=== PATIENT | female | born 1975 | race Caucasian/White ===

== ENCOUNTER 2019-04-24 10:35 | Inpatient (IN) ==
[2019-04-24] MEDS ORDERED: NARCAN IV ONE (10:52)
[2019-04-24] MEDS ORDERED: NS 1,000 ML IV ONE ×2 (10:52→13:00)
--- NOTE | 2019-04-24 10:57 | EKG Report ---
Test Performed on : 04/24/2019 10:49:14 AM Test Reason : decreased mental status Blood Pressure : / mmHG Vent. Rate : 093 BPM Atrial Rate : 093 BPM P-R Int : 140 ms QRS Dur : 078 ms QT Int : 392 ms P-R-T Axes : 061 028 055 degrees QTc Int : 487 ms Normal sinus rhythm. Possible Left atrial enlargement Septal infarct (cited on or before 22-APR-2019) Abnormal ECG When compared with ECG of 22-APR-2019 17:57, (Unconfirmed) No significant change was found Unconfirmed Result
[2019-04-24 11:05] LABS: BASO# 0.05 X1000 (0.0-0.2); BASO% 0.7 % (0.0-0.8); EOS# 0.25 X1000 (0.0-0.7); EOS% 3.3 % (0.0-10.0); HEMATOCRIT 38.4 % (37.0-47.0); HEMOGLOBIN 12.7 g/dL (12.0-16.0); LYMPH% 15.7 % (20.5-51.1); MCH 29.8 PG (27-31); MCHC 33.1 g/dL (33-37); MCV 90.1 FL (81-99); MONO# 0.49 X1000 (0.11-0.59); MONO% 6.4 % (1.7-9.3); MPV 10.8 FL (7.4-10.4); NEUT# 5.63 X1000 (1.4-6.5); NEUT% 73.9 % (42.2-75.2); PLT 182 X1000 (130-400); RBC 4.26 XMIL (4.2-5.4); RDW 13.4 % (11.5-14.5); WBC 7.62 X1000 (4.8-10.8)
[2019-04-24 11:24] LABS: ALLEN TEST YES; BE -3.7 mmoll (-3.0-3.0); BLOOD TYPE ARTERIAL; O2(CT) 16.1 mL/dL (15.0-23.0); O2HB 95.7 % (95.0-99.0); PCO2(98.6) 42 mmHg (35-45); PO2(98.6) 88 mmHg (60-100); SAMPLE BLOOD; SAO2 95.7 % (95.0-100.0); THB 11.9 g/dL (11.5-17.4); pH(98.6) 7.33 (7.35-7.45)
[2019-04-24 11:24] LABS: AGAP 7; BUN 7 mg/dL (8-22); CALCIUM 9.4 mg/dL (8.8-10.2); CHLORIDE 109 mmol/L (98-107); COSMO 275; CREATININE 0.7 mg/dL (0.5-0.9); ESTIMATED GFR > 60; GLUCOSE 86 mg/dL (70-104); SODIUM 139 mmol/L (136-145); TCO2 23 mmol/L (25-35)
[2019-04-24 11:25] LABS: ALB/GLOB RATIO 1.3; ALBUMIN 3.7 g/dL (3.5-5.0); ALKALINE PHOSPHATASE 94 U/L (32-104); GOT 15 U/L (10-30); GPT 5 U/L (10-36); TOTAL BILIRUBIN 0.26 mg/dL (0.20-1.00); TOTAL PROTEIN 6.6 g/dL (6.3-8.3)
[2019-04-24] MEDS ORDERED: AMIDATE ONE (11:28)
[2019-04-24] MEDS ORDERED: NORCURON ONE (11:30)
[2019-04-24] MEDS ORDERED: AMIDATE IV ONE (11:30)
[2019-04-24] MEDS ORDERED: NORCURON IV ONE (11:30)
--- NOTE | 2019-04-24 11:30 | Diag Imaging Result Doc PS360 ---
EXAM: CHEST-PORTABLE HISTORY: decreased mental status TECHNIQUE: Chest single view COMPARISON: 04/22/2019 FINDINGS: The lungs are well expanded. The heart is not enlarged. The vessels are not distended. There are increased interstitial markings in the right upper lung. No effusion identified. Prior surgery to the right clavicle IMPRESSION: Persistent infiltrates in the right upper lobe. Electronically signed by Kiran Hebert 04/24/2019 11:28 AM
--- NOTE | 2019-04-24 11:47 | PROVIDER DOCUMENTATION ---
This chart was entered by Yuliana Walton Scribe, acting as scribe for Anahi Block MD. [id number] Abuse/Overdose - General Stated Complaint: OVERDOSE Time Seen by Provider: 04/24/19 10:35 Source: patient, family (sister baudilio) Unable to obtain history due to:: altered Allergies/Adverse Reactions: Allergies Allergy/AdvReac Type Severity Reaction Status Date / Time morphine Allergy Severe SHORTNESS Verified 10/29/18 14:40 OF BREATH levetiracetam [From Keppra] Allergy Unknown SWELLING Verified 10/29/18 14:40 Home Medications: Home Medication List Medication Instructions Recorded Confirmed Last Taken Type Levothyroxine [Synthroid] 137 microgm PO DAILY@0700 #30 11/08/13 06/04/17 04/17/15 Rx tablet Albuterol Sulfate [Proventil Hfa] 6.7 mg INH DIRECTED PRN PRN 04/19/15 04/19/15 Unknown History Benztropine [Cogentin] 1 mg PO BID 04/19/15 06/04/17 04/17/15 History Fluticasone/Salmet 250/50 INH 1 puff INH DAILY 04/19/15 06/04/17 04/17/15 History [Advair 250/50 Diskus] Folic Acid 1 mg PO DAILY 04/19/15 06/04/17 04/17/15 History Haloperidol 5 mg PO BID 04/19/15 06/04/17 04/17/15 History Hydrocodone Bit/Acetaminophen 325 mg PO TID 04/19/15 06/04/17 04/17/15 History [Hydrocodon-Acetaminophn 10-325] Poston Carbonate [Poston 300 mg PO BID 04/19/15 06/04/17 04/17/15 History Carbonate ER] Montelukast [Singulair] 10 mg PO DAILY 04/19/15 06/04/17 04/17/15 History Clonazepam 1 mg PO TID 06/04/17 06/04/17 Unknown History Dextroamphetamine/Amphetamine 30 mg PO BID 06/04/17 06/04/17 Unknown History [Dextroamp-Amphetamin 30 mg Tab] Azithromycin [Zithromax] 250 mg PO DAILY #4 tab 04/23/19 Unknown Rx - History of Present Illness-Drug/Alcohol Nature of Presenting Problem: 43 yowf presents to the ed via pov by her sister in law for overdose. pt has hx of drug abuse and on exam has track reynolds in RUE. pt has on a bra for her briefs, pt has mumbling speech and is lethargic. pt pupils are sluggish. pt has a bottle of Heth 10 qty 120 filled 04/16/[address] moreno and the bottle is empty. pt has GCS 11 This episode of drinking or use began:: unsure Severity: reports: moderate Psychiatric Complaints: reports: altered mental status, suicidal ideation Associated Symptoms: denies: back/neck pain, chest pain, cough, nausea, shortness of breath, vomiting Any injuries associated with this episode of intoxication?: No Similar Symptoms Previously?: Yes (hx of drug abuse) Recently seen or treated by another doctor?: No - Substance Abuse Substance Use: reports: opiates - Overdose Intentional drug overdose?: Yes (per sister baudilio has hx of same) List substance(s) ingested.: unknown at this time sister in law sts "she just took alot" How did the ingestion/other suicidal act come to attention?: sister in law found her Suicide Risk Assessment: age >65, prior attempt, organized plan (over dose), no spouse, schizophrenia Clinician's estimation of suicide risk?: uncertain risk Review of Systems - Adult - REVIEW OF SYSTEMS - ADULT ROS:: limited per condition Constitutional: reports: no symptoms reported Eyes: reports: no symptoms reported Ears, Nose, Mouth & Throat: reports: no symptoms reported Cardiovascular: denies: chest pain, edema Respiratory: denies: shortness of breath, wheezing Gastrointestinal: denies: nausea, vomiting Genitourinary: reports: no symptoms reported Musculoskeletal: reports: no symptoms reported Integumentary: reports: no symptoms reported Neurological: denies: dizziness/vertigo, headache/migraines Psychiatric: reports: see HPI, alcohol/drug dependence, emotional problems, suicidal thoughts Endocrine: reports: no symptoms reported Hematologic/Lymphatic: reports: no symptoms reported Allergic/Immunologic: reports: no symptoms reported All Other Systems: Reviewed and Negative Past History - Adult - PAST MEDICAL HISTORY-ADULT Review of Records: reports: Old Records Reviewed, Nursing Assessment Review, Medications Reviewed Major Childhood Illnesses: reports: denies history Cardiovascular: reports: HTN Respiratory: reports: asthma Gastrointestinal: reports: denies history Obstetrical/Gynecological: reports: other (hx of breast CA) Genitourinary: reports: denies history Musculoskeletal: reports: denies history Neurological: reports: meningitis, Seizures/Epilepsy Psychiatric: reports: bipolar, psychiatric problems, suicide attempt, schizophrenia Endocrine/Immune: reports: thyroid disorder Other Conditions: reports: other cancer (breast) - PRIOR SURGERIES/PROCEDURES Surgical/Procedure History: reports: appendectomy, cholecystectomy - IMMUNIZATION STATUS Childhood Immunizations: See Nurse Assessment Flu Vaccine: See Nurse Assessment - FAMILY HISTORY Family History: reviewed, not pertinent - SOCIAL HISTORY Smoking: quit less than 1 year Substance Use: amphetamines, opiates Living Situation: family Physical Exam-General - PHYSICAL EXAM-ADULT Exam Limited by: pt has GCS 11 will respond to pain and mumbles speech Initial Vital Signs Reviewed: Yes - CONSTITUTIONAL General Appearance: thin, lethargic, slow to respond - EYES Eyes: other (pupils are equal and sluggish) - HEAD, EARS, NOSE, MOUTH & THROAT HENMT: dental decay. negative: moist mucous membranes (dry) - NECK Neck: full range of motion - RESPIRATORY Respiratory: chest non-tender - CARDIOVASCULAR Cardiovascular: tachycardia (104). negative: JVD - GASTROINTESTINAL (ABDOMEN) Abdominal Exam: normal bowel sounds, non tender, soft - LYMPHATIC Lymphatic: no adenopathy - MUSCULOSKELETAL Extremity: normal range of motion, normal inspection, normal capillary refill - SKIN Integumentary: pallor - PSYCHIATRIC Psych/Mental Status: other (pt is slow to respond but will to pain and has gag reflex) Progress - PLAN OF CARE/RESULTS Progress/Plan/Lab Results: Vital Signs - 8 hr 04/24/19 11:00 04/24/19 11:02 04/24/19 11:10 Temperature Pulse Rate 89 98 H 92 H Respiratory Rate 12 36 H 22 Blood Pressure 100/64 94/67 O2 Sat by Pulse Oximetry 99 100 100 04/24/19 11:12 04/24/19 11:20 04/24/19 11:22 Temperature Pulse Rate 95 H 94 H 96 H Respiratory Rate 21 21 Blood Pressure 105/73 119/74 O2 Sat by Pulse Oximetry 99 87 L 92 L 04/24/19 11:30 04/24/19 11:32 04/24/19 11:36 Temperature Pulse Rate 90 91 H 98 H Respiratory Rate 13 14 22 Blood Pressure 110/94 110/73 O2 Sat by Pulse Oximetry 100 100 100 08/16/19 11:38 04/24/19 11:40 04/24/19 11:42 Temperature Pulse Rate 98 H 95 H 96 H Respiratory Rate 15 16 17 Blood Pressure 115/85 116/81 121/82 O2 Sat by Pulse Oximetry 100 100 100 04/24/19 11:44 04/24/19 11:46 04/24/19 11:50 Temperature Pulse Rate 91 H 89 99 H Respiratory Rate 12 10 L 27 H Blood Pressure 110/83 105/80 O2 Sat by Pulse Oximetry 100 100 100 04/24/19 11:52 04/24/19 12:02 04/24/19 12:12 Temperature 98.0 F Pulse Rate 109 H 113 H 109 H Respiratory Rate 14 14 17 Blood Pressure 124/83 114/79 102/70 O2 Sat by Pulse Oximetry 100 100 100 04/24/19 12:22 04/24/19 12:32 04/24/19 12:40 Temperature Pulse Rate 113 H 111 H 105 H Respiratory Rate 20 22 13 Blood Pressure 112/76 109/69 O2 Sat by Pulse Oximetry 99 100 100 04/24/19 12:42 04/24/19 12:50 04/24/19 12:53 Temperature Pulse Rate 103 H 105 H 102 H Respiratory Rate 16 15 13 Blood Pressure 101/67 O2 Sat by Pulse Oximetry 100 100 04/24/19 12:54 04/24/19 13:00 04/24/19 13:02 Temperature Pulse Rate 99 H 98 H 103 H Respiratory Rate 15 18 19 Blood Pressure 98/66 122/74 O2 Sat by Pulse Oximetry 100 100 100 04/24/19 13:10 04/24/19 13:12 04/24/19 13:20 Temperature Pulse Rate 91 H 91 H 98 H Respiratory Rate 13 16 16 Blood Pressure 113/80 O2 Sat by Pulse Oximetry 100 100 100 04/24/19 13:22 04/24/19 13:30 04/24/19 13:32 Temperature Pulse Rate 98 H 96 H 93 H Respiratory Rate 24 8 L 5 L Blood Pressure 106/74 106/70 O2 Sat by Pulse Oximetry 100 100 100 04/24/19 13:40 04/24/19 13:50 04/24/19 13:52 Temperature Pulse Rate 93 H 92 H 92 H Respiratory Rate 14 10 L 10 L Blood Pressure 110/78 O2 Sat by Pulse Oximetry 100 100 100 08/16/19 14:00 04/24/19 14:02 04/24/19 14:10 Temperature Pulse Rate 92 H 95 H 93 H Respiratory Rate 13 14 16 Blood Pressure 119/75 O2 Sat by Pulse Oximetry 100 100 100 04/24/19 14:12 04/24/19 14:20 04/24/19 14:22 Temperature Pulse Rate 85 88 89 Respiratory Rate 13 14 13 Blood Pressure 117/87 119/83 O2 Sat by Pulse Oximetry 100 100 100 04/24/19 14:30 04/24/19 14:32 04/24/19 14:40 Temperature Pulse Rate 87 90 87 Respiratory Rate 16 11 L 13 Blood Pressure 125/79 O2 Sat by Pulse Oximetry 100 100 100 04/24/19 14:43 Temperature Pulse Rate 97 H Respiratory Rate 19 Blood Pressure 128/104 O2 Sat by Pulse Oximetry 100 Bedside Urine ED: Urine Bedside Start: 04/24/19 12:08 Freq: ORDERED Status: Complete Protocol: Activity Type Activity Date Activity User E-Sign Co-Sign Detail Recorded Client Recorded Date Recorded By Document 04/24/19 12:09 [id number] 04/24/19 12:09 [id number] 04/24/19 12:09 Point of Care [Bedside Point of Care] -Lot # [id number] - Results Negative -Control Line Visible? Yes Laboratory Results - last 24 hr 04/24/19 04/24/19 04/24/19 10:46 10:46 10:46 WBC 7.62 RBC 4.26 Hgb 12.7 Hct 38.4 MCV 90.1 MCH 29.8 MCHC 33.1 RDW Std Deviation 13.4 Plt Count 182 MPV 10.8 H Immature Gran % (Auto) 0.0 Neut % (Auto) 73.9 Lymph % (Auto) 15.7 L [place] % (Auto) 6.4 Eos % (Auto) 3.3 Baso % (Auto) 0.7 Immature Gran # (Auto) 0.00 Neut # (Auto) 5.63 Lymph # (Auto) 1.20 [place] # (Auto) 0.49 Eos # (Auto) 0.25 Baso # (Auto) 0.05 PT INR PTT (Actin FS) Specimen Type Sample Site pH pCO2 pO2 HCO3 Base Excess Oxyhemoglobin ABG O2 Sat (Calculated) ABG O2 Saturation ABG Carboxyhemoglobin ABG Methemoglobin Sarabjit Test A-a O2 Difference Total Hemoglobin Lactate Liter Flow Blood Gas Modality Spontaneous Rate FiO2 % Tidal Volume PEEP Sodium 139 Potassium 4.0 Chloride 109 H Carbon Dioxide 23 L Anion Gap 7 BUN 7 L Creatinine 0.7 Estimated GFR/1.73 m2 > 60 BUN/Creatinine Ratio 10 Glucose 86 Calculated Osmolality 275 Calcium 9.4 Phosphorus Magnesium Total Bilirubin 0.26 AST 15 ALT 5 L Alkaline Phosphatase 94 Creatine Kinase Troponin T Total Protein 6.6 Albumin 3.7 Globulin 2.9 Albumin/Globulin Ratio 1.3 Plasma Lactate Urine Source Urine Color Urine Turbidity Urine pH Ur Specific [place] Urine Protein Ur Glucose (Stick) Ur Ketones (Stick) Urine Blood Urine Nitrite Urine Bilirubin Urobilinogen Dipstick Urine Leukocytes Urine WBC (Auto) Urine RBC (Auto) U Epithel Cells (Auto) Urine Bacteria (Auto) Salicylates < 3.00 L Urine Opiates Screen Ur Oxycodone Screen Ur Methadone, Qual Acetaminophen 5.8 L Ur Barbiturates Screen Ur Phencyclidine Scrn Ur Amphetamines Screen U Benzodiazepines Scrn Urine Cocaine Screen U Cannabinoids Screen Plasma/Serum Ethyl Alc 04/24/19 04/24/19 04/24/19 10:46 10:46 11:19 WBC RBC Hgb Hct MCV MCH MCHC RDW Std Deviation Plt Count MPV Immature Gran % (Auto) Neut % (Auto) Lymph % (Auto) [place] % (Auto) Eos % (Auto) Baso % (Auto) Immature Gran # (Auto) Neut # (Auto) Lymph # (Auto) [place] # (Auto) Eos # (Auto) Baso # (Auto) PT 12.5 INR 0.93 PTT (Actin FS) 32.3 Specimen Type ARTERIAL Sample Site L RADIAL pH 7.33 L pCO2 42 pO2 88 HCO3 22.0 Base Excess -3.7 L Oxyhemoglobin 95.7 ABG O2 Sat (Calculated) 16.1 ABG O2 Saturation 95.7 ABG Carboxyhemoglobin 0.00 L ABG Methemoglobin 0.0 Sarabjit Test YES A-a O2 Difference 9.0 Total Hemoglobin 11.9 Lactate 0.40 L Liter Flow Blood Gas Modality Spontaneous Rate FiO2 % 21.0 Tidal Volume PEEP Sodium Potassium Chloride Carbon Dioxide Anion Gap BUN Creatinine Estimated GFR/1.73 m2 BUN/Creatinine Ratio Glucose Calculated Osmolality Calcium Phosphorus Magnesium Total Bilirubin AST ALT Alkaline Phosphatase Creatine Kinase Troponin T Total Protein Albumin Globulin Albumin/Globulin Ratio Plasma Lactate Urine Source Urine Color Urine Turbidity Urine pH Ur Specific [place] Urine Protein Ur Glucose (Stick) Ur Ketones (Stick) Urine Blood Urine Nitrite Urine Bilirubin Urobilinogen Dipstick Urine Leukocytes Urine WBC (Auto) Urine RBC (Auto) U Epithel Cells (Auto) Urine Bacteria (Auto) Salicylates Urine Opiates Screen Ur Oxycodone Screen Ur Methadone, Qual Acetaminophen Ur Barbiturates Screen Ur Phencyclidine Scrn Ur Amphetamines Screen U Benzodiazepines Scrn Urine Cocaine Screen U Cannabinoids Screen Plasma/Serum Ethyl Alc 04/24/19 04/24/19 04/24/19 12:04 12:04 12:43 WBC RBC Hgb Hct MCV MCH MCHC RDW Std Deviation Plt Count MPV Immature Gran % (Auto) Neut % (Auto) Lymph % (Auto) [place] % (Auto) Eos % (Auto) Baso % (Auto) Immature Gran # (Auto) Neut # (Auto) Lymph # (Auto) [place] # (Auto) Eos # (Auto) Baso # (Auto) PT INR PTT (Actin FS) Specimen Type ARTERIAL Sample Site L RADIAL pH 7.35 pCO2 36 pO2 201 H HCO3 20.9 Base Excess -5.1 L Oxyhemoglobin 96.7 ABG O2 Sat (Calculated) 16.1 ABG O2 Saturation 97.0 ABG Carboxyhemoglobin 0.00 L ABG Methemoglobin 0.3 Sarabjit Test YES A-a O2 Difference 39.0 Total Hemoglobin 11.5 Lactate 0.70 Liter Flow Blood Gas Modality VENTILATOR Spontaneous Rate 12 FiO2 % 40.0 Tidal Volume 450 PEEP 5.0 Sodium Potassium Chloride Carbon Dioxide Anion Gap BUN Creatinine Estimated GFR/1.73 m2 BUN/Creatinine Ratio Glucose Calculated Osmolality Calcium Phosphorus Magnesium Total Bilirubin AST ALT Alkaline Phosphatase Creatine Kinase Troponin T Total Protein Albumin Globulin Albumin/Globulin Ratio Plasma Lactate Urine Source CATH Urine Color YELLOW Urine Turbidity HAZY Urine pH 6.0 Ur Specific [place] 1.010 Urine Protein NEGATIVE Ur Glucose (Stick) NEGATIVE Ur Ketones (Stick) TRACE A Urine Blood TRACE A Urine Nitrite NEGATIVE Urine Bilirubin NEGATIVE Urobilinogen Dipstick NORMAL Urine Leukocytes LARGE A Urine WBC (Auto) TNTC A Urine RBC (Auto) <10 U Epithel Cells (Auto) <10 Urine Bacteria (Auto) 4+ Salicylates Urine Opiates Screen PRESUMPTIVE POSITIVE A Ur Oxycodone Screen NONE DETECTED Ur Methadone, Qual NONE DETECTED Acetaminophen Ur Barbiturates Screen NONE DETECTED Ur Phencyclidine Scrn NONE DETECTED Ur Amphetamines Screen PRESUMPTIVE POSITIVE A U Benzodiazepines Scrn PRESUMPTIVE POSITIVE A Urine Cocaine Screen NONE DETECTED U Cannabinoids Screen NONE DETECTED Plasma/Serum Ethyl Alc 04/24/19 04/24/19 04/24/19 13:43 13:43 13:43 WBC RBC Hgb Hct MCV MCH MCHC RDW Std Deviation Plt Count MPV Immature Gran % (Auto) Neut % (Auto) Lymph % (Auto) [place] % (Auto) Eos % (Auto) Baso % (Auto) Immature Gran # (Auto) Neut # (Auto) Lymph # (Auto) [place] # (Auto) Eos # (Auto) Baso # (Auto) PT INR PTT (Actin FS) Specimen Type Sample Site pH pCO2 pO2 HCO3 Base Excess Oxyhemoglobin ABG O2 Sat (Calculated) ABG O2 Saturation ABG Carboxyhemoglobin ABG Methemoglobin Sarabjit Test A-a O2 Difference Total Hemoglobin Lactate Liter Flow Blood Gas Modality Spontaneous Rate FiO2 % Tidal Volume PEEP Sodium Potassium Chloride Carbon Dioxide Anion Gap BUN Creatinine Estimated GFR/1.73 m2 BUN/Creatinine Ratio Glucose Calculated Osmolality Calcium Phosphorus 2.9 Magnesium 1.9 Total Bilirubin AST ALT Alkaline Phosphatase Creatine Kinase 55 Troponin T < 0.010 Total Protein Albumin Globulin Albumin/Globulin Ratio Plasma Lactate Urine Source Urine Color Urine Turbidity Urine pH Ur Specific [place] Urine Protein Ur Glucose (Stick) Ur Ketones (Stick) Urine Blood Urine Nitrite Urine Bilirubin Urobilinogen Dipstick Urine Leukocytes Urine WBC (Auto) Urine RBC (Auto) U Epithel Cells (Auto) Urine Bacteria (Auto) Salicylates Urine Opiates Screen Ur Oxycodone Screen Ur Methadone, Qual Acetaminophen Ur Barbiturates Screen Ur Phencyclidine Scrn Ur Amphetamines Screen U Benzodiazepines Scrn Urine Cocaine Screen U Cannabinoids Screen Plasma/Serum Ethyl Alc 04/24/19 04/24/19 13:43 13:54 WBC RBC Hgb Hct MCV MCH MCHC RDW Std Deviation Plt Count MPV Immature Gran % (Auto) Neut % (Auto) Lymph % (Auto) [place] % (Auto) Eos % (Auto) Baso % (Auto) Immature Gran # (Auto) Neut # (Auto) Lymph # (Auto) [place] # (Auto) Eos # (Auto) Baso # (Auto) PT INR PTT (Actin FS) Specimen Type ARTERIAL Sample Site L RADIAL pH 7.25 L pCO2 47 H pO2 154 H HCO3 19.8 L Base Excess -6.6 L Oxyhemoglobin 96.5 ABG O2 Sat (Calculated) 16.2 ABG O2 Saturation 96.5 ABG Carboxyhemoglobin 0.00 L ABG Methemoglobin 0.0 Sarabjit Test YES A-a O2 Difference 15.0 Total Hemoglobin 11.7 Lactate 0.30 L Liter Flow 3.0 Blood Gas Modality CANNULA Spontaneous Rate FiO2 % 32.0 Tidal Volume PEEP Sodium Potassium Chloride Carbon Dioxide Anion Gap BUN Creatinine Estimated GFR/1.73 m2 BUN/Creatinine Ratio Glucose Calculated Osmolality Calcium Phosphorus Magnesium Total Bilirubin AST ALT Alkaline Phosphatase Creatine Kinase Troponin T Total Protein Albumin Globulin Albumin/Globulin Ratio Plasma Lactate 0.5 Urine Source Urine Color Urine Turbidity Urine pH Ur Specific [place] Urine Protein Ur Glucose (Stick) Ur Ketones (Stick) Urine Blood Urine Nitrite Urine Bilirubin Urobilinogen Dipstick Urine Leukocytes Urine WBC (Auto) Urine RBC (Auto) U Epithel Cells (Auto) Urine Bacteria (Auto) Salicylates Urine Opiates Screen Ur Oxycodone Screen Ur Methadone, Qual Acetaminophen Ur Barbiturates Screen Ur Phencyclidine Scrn Ur Amphetamines Screen U Benzodiazepines Scrn Urine Cocaine Screen U Cannabinoids Screen Plasma/Serum Ethyl Alc Orders Category Date Time Status Admit [facility] Routine [id number] 04/24/19 14:01 Active Activity - Up with Assistance ORDERED Care 04/24/19 14:56 Active Apply Mechanical Device [QM] ORDERED Care 04/24/19 14:56 Active ED: Urine Bedside ORDERED Care 04/24/19 12:08 Completed [place] Cath Insertion ORDERED Care 04/24/19 12:43 Completed Intake and Output-Strict ORDERED Care 04/24/19 14:56 Active Nursing- Assist w/ IS as order ORDERED Care 04/24/19 14:56 Active Restraint Initiate NonViolent ONCE Care 04/24/19 12:32 Active Saline Loc NOW Care 04/24/19 10:52 Active Update & Confirm Home Medicati ROUTINE Care 04/24/19 14:01 Active Vital Signs Order Q 4-HR ASSESS Care 04/24/19 14:56 Active Z-Document. for Tele Applied ORDERED Care 04/24/19 14:56 Active Social Service Consult Routine Cons 04/24/19 14:56 Active CHEST-PORTABLE [RAD] Stat Exams 04/24/19 10:[address] HEAD W/O CONTRAST [CT] Stat Exams 04/24/19 11:46 Ordered ABG [RESP] Routine Lab 04/24/19 11:19 Completed ABG [RESP] Routine Lab 04/24/19 12:43 Completed ABG [RESP] Routine Lab 04/24/19 13:54 Completed ACETAMINOPHEN [TDM] Stat Lab 04/24/19 10:46 Completed ALCOHOL BLOOD Stat Lab 04/24/19 10:46 Completed CBC WITH DIFF [HEME] Routine Lab 04/25/19 06:00 Uncollected CBC WITH DIFF [HEME] Stat Lab 04/24/19 10:46 Completed CK TOTAL [CHEM] Stat Lab 04/24/19 13:43 Completed COMPREHENSIVE METABOLIC PANEL [CHEM] Routine Lab 04/25/19 06:00 Uncollected COMPREHENSIVE METABOLIC PANEL [CHEM] Stat Lab 04/24/19 10:46 Completed FREE T4 Routine Lab 04/25/19 06:00 Ordered LACTATE, PLASMA [CHEM] Stat Lab 04/24/19 13:43 Completed MAGNESIUM [CHEM] Routine Lab 04/25/19 06:00 Uncollected MAGNESIUM [CHEM] Stat Lab 04/24/19 13:43 Completed PHOSPHORUS [CHEM] Stat Lab 04/24/19 13:43 Completed PROTIME WITH INR [COAG] Routine Lab 04/25/19 06:00 Uncollected PROTIME WITH INR [COAG] Stat Lab 04/24/19 10:46 Completed PTT [COAG] Routine Lab 04/25/19 06:00 Uncollected PTT [COAG] Stat Lab 04/24/19 10:46 Completed SALICYLATES [TDM] Stat Lab 04/24/19 10:46 Completed TROPONIN T Stat Lab 04/24/19 13:43 Completed TSH Routine Lab 04/25/19 06:00 Uncollected URINALYSIS W/POSS RFLX CULT [URINALYSIS] Stat Lab 04/24/19 12:04 Completed URINE DRUG SCREEN Stat Lab 04/24/19 12:04 Completed 0.9% Sodium Chloride Inj [Ns] 1,000 ml Med 04/24/19 12:58 Discontinued .ROUTE As directed 0.9% Sodium Chloride Inj [Ns] 1,000 ml Med 04/24/19 10:52 Discontinued IV 999 mls/hr 0.9% Sodium Chloride Inj [Ns] 1,000 ml Med 04/24/19 13:00 Discontinued IV 999 mls/hr Albuterol 2.5MG/Ipratrop 0.5MG [Duoneb (A & A)] Med 04/24/19 14:01 Active 3 ml INH Q2H PRN PRN Etomidate [Amidate] Med 04/24/19 11:28 Discontinued 40 mg .ROUTE .STK-MED ONE Etomidate [Amidate] Med 04/24/19 11:30 Discontinued 5 mg IV NOW ONE Naloxone [Narcan] Med 04/24/19 10:52 Discontinued 2 mg IV NOW ONE Ondansetron [Zofran] Med 04/24/19 14:01 Active 4 mg IV Q4H PRN PRN Piperacillin/Tazobactam [Zosyn] 3.375 gm Med 04/24/19 14:30 Active 0.9% Sodium Chloride Inj [Ns] 50 ml IV Q6H Vecuronium [Norcuron] Med 04/24/19 11:30 Discontinued 10 mg .ROUTE .STK-MED ONE Vecuronium [Norcuron] Med 04/24/19 11:30 Discontinued 6 mg IV NOW ONE Aerosol Treatments Routine Oth 04/24/19 14:01 Completed BIPAP Routine Oth 04/24/19 14:24 Active Incentive Spirometer Routine Oth 04/24/19 14:56 Completed Oxygen Device Routine Oth 04/24/19 14:56 Completed Pulse Oximetry Routine Oth 04/24/19 14:56 Completed Telemetry [OM.EQ] Routine Oth 04/24/19 14:56 Active EKG [EKG] Routine Ther 04/25/19 08:00 Ordered EKG [EKG] Stat Ther 04/24/19 10:52 Draft Transfer/Admit Order [TRANSFER] Routine Transfer 04/24/19 13:56 Completed Result Diagrams: 04/24/19 10:46 04/24/19 10:46 - REASSESSMENT Reassessment #1 Time Reassessed: 11:01 (Narcan 2mg given with mild response) Status: improving Reassessment Comment: dr block at bedside Reassessment #2 Time Reassessed: 12:07 (pt is intubated with family at bedside) Status: unchanged Reassessment Comment: dr block at bedside Reassessment #3 Time Reassessed: 12:53 (pt is trying to wake but still does not follow commands ) Status: unchanged Reassessment Comment: dr block at bedside Reassessment #5 Time Reassessed: 13:22 (pt waking more and nurse spoke with poision control and pt will be monitored) Status: improving Reassessment Comment: dr block at bedside - EKG 1 Time of EKG reading by physician:: 10:49 EKG Read and Signed by:: Anahi Block EKG Interpretation (*Must complete 3 of following elements*): Abnormal Rate: 93 Rhythm: nsr [place]: normal QRS: other (possible left atrial enlargement) OK Interval: normal ST Wave: normal Comments: septal infarct, age undetermined - CONSULTS/PCP/HOSPITALIST Notification #1 *Consult/PCP/Hospitalist*: hospitalist Time Discussed: 13:13 (spoke with jo ann) Consult Disposition: Admit Procedures - INTUBATION Time of Intubation: 11:42 Mallampati Class: 2 Intubation Method: orotracheal Equipment: ETT Tube Size (cm): 7.5 Pretreated with 100% Oxygen?: Yes Breath Sounds after Intubation: equal ETT Primary Tube Confirmation: Capnometry CO2 Change, Direct Visualization, Chest Rise and Fall, Tube placement verified on XRAY Intubation Complications: no complications Vent Settings: See Respiratory Therapy Notes Departure - Departure Date of Disposition Decision: 04/24/19 Time of Disposition Decision: 13:14 DIAGNOSIS: Drug use, Opioid use disorder Overdose Qualifiers: Encounter type: initial encounter Injury intent: intentional self-harm Qualified Code(s): T50.902A - Poisoning by unspecified drugs, medicaments and biological substances, intentional self-harm, initial encounter Disposition: ADMITTED INPATIENT 09 Certified Medical Emergency: Emergent Condition: Stable - Critical Care Note This patient required my direct & personal management of CC.: Yes Total Time (mins): 48 Critical Care Statement: This patient required my direct personal management to treat or rule out processes, the absence of which, could potentiallly result in sudden, clinically significant life or limb threatening deterioration. Attestation - Physician/ GARY Attestation Patient care was provided by Advanced Practice Provider:: No The physician spent face to face time with patient:: Yes Advanced Practice Provider documentation review:: Supervising physician onsite and consulted in the evaluation and care of this patient. The physician did have a face to face encounter with the patient. This chart was documented by the indicated scribe, (Yuliana Walton Scribe) and accurately reflects the services I performed and decisions made by , Anahi Block MD, as attested by the provider's signature.
[2019-04-24 12:31] LABS: URINE SOURCE CATH
[2019-04-24 12:39] LABS: BILIRUBIN URINE NEGATIVE (NEGATIVE); BLOOD URINE TRACE (NEGATIVE); COLOR YELLOW; GLUCOSE URINE NEGATIVE (NEGATIVE); KETONE URINE TRACE mg/dL (NEGATIVE); LEUKOCYTES URINE LARGE (NEGATIVE); NITRITE URINE NEGATIVE (NEGATIVE); PROTEIN URINE NEGATIVE (NEGATIVE); TURBIDITY URINE HAZY (CLEAR); UROBILINOGEN URINE NORMAL (NORMAL)
[2019-04-24 12:41] LABS: UR EPITHELIAL CELLS <10 /HPF (<10); URINE BACTERIA 4+ /HPF; URINE RBC <10 /HPF (<10); URINE WBC TNTC /HPF (<10)
[2019-04-24 12:50] LABS: ALLEN TEST YES; BE -5.1 mmoll (-3.0-3.0); BLOOD TYPE ARTERIAL; HCO3-(ACT) 20.9 mmoll (20.0-26.0); METHB 0.3 % (0.0-1.5); O2(CT) 16.1 mL/dL (15.0-23.0); O2HB 96.7 % (95.0-99.0); PCO2(98.6) 36 mmHg (35-45); PO2(98.6) 201 mmHg (60-100); SAMPLE BLOOD; SRATE 12 BPM; THB 11.5 g/dL (11.5-17.4); TVOL 450 mL; pH(98.6) 7.35 (7.35-7.45)
[2019-04-24 12:53] LABS: MODALITY VENTILATOR
[2019-04-24 12:54] LABS: UR AMPHETAMINES QUAL PRESUMPTIVE POSITIVE (NONE DETECT); UR BARBITUATES QUAL NONE DETECTED (NONE DETECT); UR BENZODIAZEPIN QUAL PRESUMPTIVE POSITIVE (NONE DETECT); UR CANNABINOIDS QUAL NONE DETECTED (NONE DETECT); UR COCAINE QUAL NONE DETECTED (NONE DETECT); UR METHADONE QUAL NONE DETECTED (NONE DETECT); UR OPIATES QUAL PRESUMPTIVE POSITIVE (NONE DETECT); UR OXYCODONE QUAL NONE DETECTED (NONE DETECT); UR PCP QUAL NONE DETECTED (NONE DETECT)
[2019-04-24] MEDS ORDERED: NS 1,000 ML ONE (12:58)
[2019-04-24 13:42] LABS: ACETAMINOPHEN 5.8 ug/mL (10-30); SALICYLATES < 3.00 mg/dL (3-10)
[2019-04-24 13:52] LABS: INR 0.93; PROTIME 12.5 Seconds (11.0-16.0)
[2019-04-24 13:53] LABS: PTT 32.3 Seconds (22.3-41.8)
[2019-04-24] MEDS ORDERED: ZOFRAN IV PRN (14:01)
[2019-04-24 14:09] LABS: ALLEN TEST YES; BE -6.6 mmoll (-3.0-3.0); BLOOD TYPE ARTERIAL; HCO3-(ACT) 19.8 mmoll (20.0-26.0); MODALITY CANNULA; O2(CT) 16.2 mL/dL (15.0-23.0); O2HB 96.5 % (95.0-99.0); PCO2(98.6) 47 mmHg (35-45); PO2(98.6) 154 mmHg (60-100); SAMPLE BLOOD; SAO2 96.5 % (95.0-100.0); THB 11.7 g/dL (11.5-17.4); pH(98.6) 7.25 (7.35-7.45)
[2019-04-24 14:11] LABS: PHOSPHORUS 2.9 mg/dL (2.7-4.5)
--- NOTE | 2019-04-24 15:35 | HISTORY AND PHYSICAL ---
PRIMARY CARE PROVIDER: Currently, Venkatesh Lowery in [place]. Prior to this, a lot of her prescriptions come from Dennis Wright Jr., a medical doctor and flight deck officer in [place], [place]. Her neurologist is out of [place], [place] as well and his name is Niecy Obando MD. CHIEF COMPLAINT: Overdosing on prescription medications with altered mentation. HISTORY OF PRESENT ILLNESS: Ms Sherrell Millard is a 43-year-old female that is brought in by her qwjrsp-ne-ccd by personal vehicle due to being unresponsive and overdosing on her medications which is thought to be from Adderall, Xanax, Percocet, and Lamictal. She was intubated due to her declining Patel Coma Scale. I think she initially presented with a scale of 13 and down to 8, and was intubated precautionary in order to maintain a good oral airway. She was also extubated within an hour, but it was due to she was awake following commands, fighting the ventilator, and now that she is extubated she is drowsy again. We will have to watch her very very closely. She did get a dose of Narcan which temporarily worked, but with her history of seizures, we will have to let her wake up on her own. Her qkcixd-jj-uzx is going to stay at the bedside to help keep her stimulated. She will open her eyes, but she is very drowsy. If she declines, she will have to be reinstated. On further questioning the zcewjm-ob-wpx about suicidal risks the bsvhbk-br-era states that when she gets angry she makes threats of suicidal ideations with no clear way of doing it. She has not been eating good. She has not been taking her medications good. Apparently, she gets into them after her goes to bed. They are not locked up. The last time she was admitted to inpatient psychiatric was here at [facility] but it was back in 2013. Once she is medically cleared, she really needs inpatient psychiatric care. PAST MEDICAL HISTORY: 1. Bipolar schizophrenia. 2. 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 3. Hypothyroidism. 4. Seizure disorder. 5. Hypoglycemia. 6. Was apparently in a coma for 6 months, and had to have a section during that time. No clear details on what that was from. 7. Breast cancer. SURGICAL HISTORY: 1. section. 2. Appendectomy. 3. Partial hysterectomy. 4. Right shoulder repair from traumatic injury. 5. Breast resection. SOCIAL HISTORY: Quit smoking a month ago. Currently vapes 3 pack per day smoker for 10+ years along with cigars according to the wdtuwi-tz-nsx. No alcohol for 2 years. Had a tendency to abuse her prescription pills. She currently does not work. Currently from her , but the utvkyc-yj-skh and the have to do 24 hour care. Apparently, she is just not stable enough mentally to be left alone. FAMILY HISTORY: Mother was in the , and apparently from anthrax poison, that is what was reported by the umancl-ti-wsx. The father is currently dying from an unknown cancer, and has had a history of liver transplant. ALLERGIES: Morphine and Keppra. HOME MEDICATIONS: Not verified yet, but reviewing medications that have been recently prescribed what is listed as early as February through April with multiple prescriptions from Dennis Wright physician in [place], [place]. There was 1 prescription for folic acid by Dr. Obando her neurologist in [place], [place]. There is one antibiotic prescription from Venkatesh Lowery, a physician in [place]. Apparently, she had Lamictal, [place] and Klonopin in the backpack that was brought, and what was reported in the ER notes is the bottle of [place] 10s quantity of 120 was filled on 04/[address] Lowery and the bottle was empty. To continue with medications that recently were filled, but have not been reconciled yet by nursing staff is Adderall in February, baclofen in April, benztropine in April, clonazepam in February, folic acid in April, haloperidol in February, [place] 10s in February, lamotrigine in February, Synthroid in February, Synthroid again in April, Singulair in March, omeprazole in March, Bactrim in March, trazodone in April, and zonisamide in March. REVIEW OF SYSTEMS: Unable to obtain. PHYSICAL EXAMINATION: VITAL SIGNS: Temperature 98 degrees, heart rate 109, respiratory rate 17, blood pressure 102/70, and O2 saturation 100%. GENERAL: Ms. Sherrell Millard is a 43-year-old female, very very ill-appearing cachectic and extremely drowsy; will barely open her eyes. HEENT: Face is sunken in. Pupils are equal and reactive. Mucous membranes are dry. NECK: Trachea midline. CARDIOVASCULAR: S1, S2. Tachycardic rate and rhythm. No rubs, gallops, or murmurs. No lower extremity edema. +2 dorsalis and radial pulses. Negative JVD or carotid bruits. PULMONARY: Coarse throughout on 3 L nasal cannula. Inspirations are not very deep. GI: Soft. Concave. Positive bowel sounds times 4. EXTREMITIES: Currently will not follow commands. NEUROLOGIC: Nonverbal. Opens eyes. Very drowsy. SKIN: Warm, dry, and intact, and even possibly some track reynolds in the right upper extremity. LABORATORY DATA: White blood cells 7000, hemoglobin 12, hematocrit 38, and platelet count 182,000. INR 0.93. PTT is 32.3. ABGs pH 7.25, pCO2 47, PO2 154, bicarb 19.8, base excess -6.6, and saturation 96%. Lactate 0.3. Sodium 139, potassium 4.0, BUN 7, creatinine 0.7, glucose 86, calcium 9.4, phosphorus 2.9, bilirubin 0.26, AST 15, ALT 5, CK 55, troponin less than 0.01. Albumin 3.7, serum lactate 0.5. Urinalysis: Trace ketones, trace blood, large leukocytes, too numerous to count white blood cells, 4+ bacteria. Urine drug screen positive for opiates, positive amphetamines and benzodiazepine. Alcohol negative. Salicylates less than 3. Acetaminophen 5.8. IMAGIN. Chest x-ray persistent infiltrates in the right upper lobe. 2. EKG normal sinus rhythm, rate of 93. QTc 487. ASSESSMENT/PLAN: 1. Intentional versus unintentional drug overdose, possible suicidal ideations at home with anger spells. Temporarily airway was protected by intubation as she was drowsy. She did receive a one time dose of Narcan which slightly helped. She will have to be monitored in the ICU. We will probably have to use BiPAP as she is too drowsy to maintain her airway still. She was extubated due to extreme agitation, but would follow commands and sit straight up in bed. She was in 4 point restraints. 2. Bipolar schizophrenia likely not taking medications correctly. Family tries to manage it, but she is difficult to control at home. She is going to need inpatient care to get her back on track with her psychiatric medications. 3. Hypothyroidism. We will check a TSH and T4 in the morning and adjust her medications of her Synthroid. 4. Seizure disorder. We will have to let her overdose of medications slowly wear off as she could be at risk for seizure if reversal agents are continued to be given. 5. Deep venous thrombosis prophylaxis. SCD's. 6. Severe protein calorie malnutrition and cachectic. Apparently, she has got severely poor dentition. It is black in the bottom areas where her teeth are supposed to be. Family blends her food for her to eat, and she does not eat very well at all. 7. Right upper lobe infiltrates. Possible UTI. White blood cell count is normal. She does have coarse lung sounds. We may go ahead and just add some Zosyn to cover any kind of gram- negative bacteria. 8. Tobacco abuse. Noted, currently over sedate by her oral medications at this time. Dictated by OSBALDO Powell for Reji Ocampo MD cc: OSBALDO Powell MD [facility]
[2019-04-24] MEDS ORDERED: HALDOL IV PRN (15:57)
[2019-04-24] MEDS: ZOSYN 3.375 GM in NS 50 ML IV SCH ×2 (16:00→20:52)
[2019-04-24] MEDS ORDERED: SODIUM CHLORIDE 0.9% INJ SCH (16:15)
[2019-04-24] MEDS: NS 1,000 ML IV SCH (16:34)
[2019-04-24 16:40] LABS: ALLEN TEST NO; BE -6.8 mmoll (-3.0-3.0); BLOOD TYPE ARTERIAL; HCO3-(ACT) 19.6 mmoll (20.0-26.0); O2(CT) 16.6 mL/dL (15.0-23.0); O2HB 96.5 % (95.0-99.0); PCO2(98.6) 48 mmHg (35-45); PO2(98.6) 146 mmHg (60-100); SAMPLE BLOOD; SAO2 96.5 % (95.0-100.0); pH(98.6) 7.24 (7.35-7.45)
[2019-04-24 16:41] LABS: MODALITY BI PAP
[2019-04-24] MEDS: PROTONIX IV SCH (17:37)
[2019-04-24] MEDS ORDERED: QUELICIN IV ONE (17:40)
[2019-04-24] MEDS ORDERED: DIPRIVAN 1% IV ONE (17:41)
[2019-04-24] MEDS: DIPRIVAN 1% 1,000 MG/100 ML BOTTLE IV SCH ×2 (18:25→23:46)
--- NOTE | 2019-04-24 18:44 | Diag Imaging Result Doc PS360 ---
CHEST-PORTABLE - 04/24/2019 6:29 PM INDICATION: intubated COMPARISON: 11:05 AM FINDINGS: There is an endotracheal tube in good position at T4. The lungs remain clear and the heart size is normal. No pneumothorax or pleural effusion. IMPRESSION: Good endotracheal tube placement. Electronically signed by Jaiden Armendariz 04/24/2019 6:43 PM
--- NOTE | 2019-04-24 18:51 | OPERATIVE NOTE ---
PROCEDURE DATE: 04/24/2019 INDICATION: She has been intubated for airway protection. This is an endotracheal re-intubation. A 43-year-old female with drug overdose on numerous substances. We found prescriptions for baclofen, Linn, Klonopin, Lamictal, zonisamide, all of which were filled about 8 days ago. Some of those prescriptions, particularly Linn, she does not have any left. She is persistently hypercapnic, not hypoxic per se, but hypercapnic, and still not mentating appropriately. So, we are going to treat her for intubate for airway protection and persistent hypercapnia. DESCRIPTION: The patient was sedated with succinylcholine 50 mg and 10 mg of propofol. Cords were directly visualized using a laryngoscope, Jose blade, and the patient's ET tube was placed at 22 cm at the lip. Condensation noted, CO2 noted, bilateral breath sounds noted. Chest x-ray is pending. We will initiate propofol and follow closely. I discussed the case briefly with Dr. Uribe. cc: Reji Ocampo MD
[2019-04-24 20:22] LABS: ALLEN TEST YES; BE -7.3 mmoll (-3.0-3.0); BLOOD TYPE ARTERIAL; HCO3-(ACT) 19.2 mmoll (20.0-26.0); METHB 0.4 % (0.0-1.5); MODALITY VENTILATOR; O2(CT) 16.7 mL/dL (15.0-23.0); O2HB 96.2 % (95.0-99.0); PCO2(98.6) 50 mmHg (35-45); PO2(98.6) 200 mmHg (60-100); SAMPLE BLOOD; SAO2 96.6 % (95.0-100.0); SRATE 12 BPM; TVOL 450 mL; pH(98.6) 7.22 (7.35-7.45)
[2019-04-24] MEDS: ATIVAN IV PRN (20:52)
[2019-04-24] MEDS: DUONEB (A & A) INH PRN (23:09)
[2019-04-25] MEDS: NS 1,000 ML IV SCH ×3 (01:55→12:15)
[2019-04-25] MEDS: ZOSYN 3.375 GM in NS 50 ML IV SCH ×4 (01:56→19:32)
[2019-04-25] MEDS: ATIVAN IV PRN ×3 (03:06→20:13)
[2019-04-25 04:31] LABS: ALLEN TEST YES; BE -6.6 mmoll (-3.0-3.0); BLOOD TYPE ARTERIAL; HCO3-(ACT) 19.8 mmoll (20.0-26.0); METHB 0.4 % (0.0-1.5); O2(CT) 16.4 mL/dL (15.0-23.0); O2HB 96.1 % (95.0-99.0); PCO2(98.6) 38 mmHg (35-45); PO2(98.6) 191 mmHg (60-100); SAMPLE BLOOD; SAO2 96.5 % (95.0-100.0); SRATE 12 BPM; THB 11.8 g/dL (11.5-17.4); TVOL 450 mL; pH(98.6) 7.31 (7.35-7.45)
[2019-04-25 04:32] LABS: MODALITY VENTILATOR
[2019-04-25 06:04] LABS: BASO# 0.04 X1000 (0.0-0.2); BASO% 0.6 % (0.0-0.8); EOS# 0.14 X1000 (0.0-0.7); HEMATOCRIT 35.5 % (37.0-47.0); HEMOGLOBIN 11.4 g/dL (12.0-16.0); LYMPH# 0.79 X1000 (1.2-3.4); LYMPH% 11.5 % (20.5-51.1); MCH 29.2 PG (27-31); MCHC 32.1 g/dL (33-37); MCV 90.8 FL (81-99); MONO# 0.32 X1000 (0.11-0.59); MONO% 4.6 % (1.7-9.3); MPV 10.8 FL (7.4-10.4); NEUT% 81.3 % (42.2-75.2); PLT 178 X1000 (130-400); RBC 3.91 XMIL (4.2-5.4); RDW 13.2 % (11.5-14.5); WBC 6.89 X1000 (4.8-10.8)
[2019-04-25 06:13] LABS: INR 0.96; PROTIME 12.8 Seconds (11.0-16.0); PTT 33.9 Seconds (22.3-41.8)
[2019-04-25] MEDS: DIPRIVAN 1% 1,000 MG/100 ML BOTTLE IV SCH ×3 (06:16→20:14)
[2019-04-25 06:25] LABS: AGAP 8; ALB/GLOB RATIO 1.2; ALBUMIN 2.9 g/dL (3.5-5.0); ALKALINE PHOSPHATASE 87 U/L (32-104); BUN 6 mg/dL (8-22); CALCIUM 7.7 mg/dL (8.8-10.2); CHLORIDE 115 mmol/L (98-107); COSMO 282; CREATININE 0.6 mg/dL (0.5-0.9); ESTIMATED GFR > 60; GLUCOSE 81 mg/dL (70-104); GOT 11 U/L (10-30); GPT < 5 U/L (10-36); POTASSIUM 3.5 mmol/L (3.5-5.1); SODIUM 143 mmol/L (136-145); TCO2 20 mmol/L (25-35); TOTAL BILIRUBIN 0.18 mg/dL (0.20-1.00); TOTAL PROTEIN 5.3 g/dL (6.3-8.3)
--- NOTE | 2019-04-25 06:27 | Diag Imaging Result Doc PS360 ---
EXAM: CHEST-PORTABLE HISTORY: dyspnea TECHNIQUE: Portable chest single view COMPARISON: 04/24/2019 FINDINGS: Endotracheal tube is in good position. Lungs are well expanded. No cardiomegaly. Minimal pulmonary edema. No consolidation. No pleural effusions identified. IMPRESSION: Minimal pulmonary edema. Electronically signed by Kiran Hebert 04/25/2019 6:25 AM
--- NOTE | 2019-04-25 06:52 | EKG Report ---
Test Performed on : 04/25/2019 06:24:49 AM Test Reason : drug overdose Blood Pressure : / mmHG Vent. Rate : 091 BPM Atrial Rate : 091 BPM P-R Int : 144 ms QRS Dur : 072 ms QT Int : 408 ms P-R-T Axes : 071 055 063 degrees QTc Int : 501 ms Normal sinus rhythm. Septal infarct (cited on or before 22-APR-2019) Prolonged QT Abnormal ECG When compared with ECG of 24-APR-2019 10:49, (Unconfirmed) No significant change was found Confirmed by Domingo Barrios MD ([id number]) on 04/28/2019 12:04:16 PM
--- NOTE | 2019-04-25 06:57 | Diag Imaging Result Doc PS360 ---
EXAM: CT HEAD W/O CONTRAST HISTORY: altered mental status, overdose TECHNIQUE: CT head without contrast COMPARISON: 04/22/2019 FINDINGS: No parenchymal hemorrhage. No epidural or subdural hematoma. No subarachnoid hemorrhage. Arachnoid cyst versus encephalomalacia and/or atrophy in the temporal regions similar to the prior study. No mass identified on this noncontrasted exam. No hydrocephalus. No sinus opacification. IMPRESSION: No hemorrhage. No change. A preliminary report was given at the time of the exam. This exam was performed using automated exposure control, adjustment of mA or kV according to patient size, and/or use of iterative reconstruction technique. Electronically signed by Kiran Hebert 04/25/2019 6:55 AM
[2019-04-25 07:01] LABS: FREE T4 1.55 ng/dL (0.93-1.70); TSH 0.06 uIUmL (0.27-4.20)
[2019-04-25] MEDS: DUONEB (A & A) INH PRN ×3 (08:12→15:30)
[2019-04-25] MEDS ORDERED: LASIX PO ONE (11:51)
[2019-04-25] MEDS ORDERED: ZONEGRAN PO SCH (12:00)
[2019-04-25] MEDS ORDERED: LASIX IV ONE (12:40)
[2019-04-25] MEDS ORDERED: QUELICIN IV ONE (13:00)
--- NOTE | 2019-04-25 13:37 | Diag Imaging Result Doc PS360 ---
EXAM: CHEST-PORTABLE HISTORY: intubation TECHNIQUE: Portable chest COMPARISON: 4:13 AM FINDINGS: Endotracheal tube remains in good position. Interval placement of a nasogastric tube. This overlies the esophagus and stomach. However the inner and is coiled upon itself and lies in the distal esophagus. The lungs are well expanded. The heart is not enlarged. The vessels are not distended. There are no infiltrates. No effusion identified. IMPRESSION: Interval placement of a nasogastric tube which is coiled upon itself in the stomach with the tip coming back up the distal esophagus. Electronically signed by Kiran Hebert 04/25/2019 1:34 PM
--- NOTE | 2019-04-25 13:52 | PROGRESS NOTE ---
DATE: 04/25/2019 SUBJECTIVE: The patient is intubated, sedated. When sedation is off, though she awakens. OBJECTIVE: Blood pressure is 101/58, heart rate of 111, respiratory rate 17, temperature 97.8 degrees, she is on 40%. She has been afebrile. Cardiovascular: Hyperdynamic. Pulmonary: Bilateral breath sounds clear to auscultation. GI: Was soft, nontender, nondistended. Bowel sounds are positive. LABORATORY DATA: White count 6, H and H 11 and 35, platelets 178,000. PH 7.31, pCO2 of 38, PaO2 191. TSH is low but free T4 normal. PROBLEM LIST: 1. Acute respiratory failure due to drug overdose, possible unintentional overdose. She was reintubated yesterday because she was not protecting her airway and she was persistently hypercapnic. Will evaluate today for weaning and extubation. Pulmonary will evaluate today. 2. Bipolar schizophrenia. We will continue treatments when she has stabilized. 3. Hypothyroidism is stable currently. 4. Seizure disorder. We need to put her back on her medications once we can stabilize some. It is not clear she overdosed on that. 5. Severe protein-calorie malnutrition. She just eats very poorly. 6. Gram-negative everett UTI, difficult to say she has symptoms, although she apparently is encephalopathic. 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 Appreciate Pulmonary assistance. We will go from there. cc: Reji Ocampo MD
--- NOTE | 2019-04-25 15:37 | CONSULTATION ---
DATE OF CONSULTATION: 04/25/2019 REQUESTING PROVIDER: Dr. Juanjose Ocampo. REASON FOR CONSULTATION: Respiratory failure. HISTORY OF PRESENT ILLNESS: This is a 43-year-old female with a medical history of bipolar schizophrenia, encephalitis with brain damage, hypothyroidism, seizure disorder, hypoglycemia, and breast cancer. She apparently had presented to the ER on 04/22/2019 to 04/23/2019 with altered mental status. She presented to the ER in our facility yesterday morning with drug overdose and altered mental status. Initial chest x-ray also showed persistent infiltrates in the right upper lobe. She was eventually intubated yesterday afternoon for airway protection and persistent hypocapnea. She has been admitted to the ICU for further evaluation and management. The patient currently is still intubated. The patient's nmcebo-xn-wiv and "" are at the bedside. They report the patient has no cough, SOB, or fever before admission. The patient's "" stated the patient has been "confused and hallucinated". Apparently, the patient had a fall in the kitchen 4 weeks ago with loss of consciousness at that time, which, per patient's "", was a "baby seizure". Patient's "" also reported that patient has some degree of short-term memory loss. PAST MEDICAL HISTORY: 1. Bipolar schizophrenia. 2. Encephalitis with brain damage in youth 3. Hypothyroidism. 4. Seizure disorder. 5. Hypoglycemia. 6. Breast cancer. 7. In a coma for 6 months before and had a section during that time per H and P. PAST SURGICAL HISTORY: 1. Csarean section. 2. Appendectomy. 3. Partial hysterectomy. 4. Right shoulder repair from traumatic injury. 5. Breast resection. SOCIAL HISTORY: The patient was a heavy smoker before, she smokes 3 packs per day of either cigarette or cigar for over 10 years. She quit smoking a month ago and start vaping since then. She has quitted drinking for 2 years via [facility] She lives with her "" and ptafxk-ns-ewm for 3 years. She had a miscarriage during this time. She has 1 son and 2 daughters from prior marriage. All of them stay with her ex-, the children's biological father. FAMILY HISTORY: Put per H and P, mother from anthrax poison. Father from unknown cancer with a history of liver transplant. ALLERGIES: Morphine and Keppra. REVIEW OF SYSTEMS: Unable to be obtained. PHYSICAL EXAMINATION: Vital Signs: Temperature 97.8 degrees, blood pressure 105/69, pulse 85, respiratory rate 15, oxygen saturation 100% on AC mechanical ventilator with spontaneous rate 12, FiO2 50%, tidal volume 450 and PEEP 5. General: Appear older than stated age; cachectic, intubated, in no acute distress. HEENT: Atraumatic, normocephalic. Trachea midline. ET tube in place. Mucosa pink and moist. Respiratory: Symmetric mechanical ventilated, symmetrical excursion, clear to auscultation bilaterally. Cardiovascular: Regular rate and rhythm. Gastrointestinal: Soft, flat, normoactive bowel sounds in all 4 quadrants. Extremities: No pedal edema. No cyanosis. No clubbing. Dorsalis pedis 2+ bilaterally. Neurologic: Sedated, unresponsive to any verbal stimuli. LABORATORY DATA: White blood cells 6.89, hemoglobin 11.4, hematocrit 35.5, platelet 178,000. Sodium 143, potassium 3.5, chloride 115, carbon dioxide 20, BUN 6, creatinine 0.6, glucose 81. ABG, pH 7.31, pCO2 38, PO2 191, HCO3 19.8, base excess -6.6, and oxyhemoglobin 96.1. IMAGING DATA: Chest x-ray revealed minimal pulmonary edema. ASSESSMENT: This is a 43-year-old female with a medical history of bipolar schizophrenia, encephalitis, hypothyroidism, seizure disorder, hypoglycemia, and breast cancer. She has been admitted to the ICU since yesterday morning with intentional versus intentional drug overdose, acute hypoxic, hypercapnic respiratory failure and right upper lobe infiltrates. 1. Acute hypoxic, hypercapnic respiratory failure. pCO2 of 38 this morning, still on AC mechanical ventilator with FiO2 dropped to 40% at this time. 2. Intentional versus unintentional drug overdose with possible suicidal ideation at home with anger spells per patient's brzqal-ld-ogf and the patient's "". 3. Right upper lobe infiltrates with minimal pulmonary edema. PLAN: 1. Continue AC mechanical ventilator, and we will start weaning trials when appropriate. 2. Continue antibiotics and bronchodilators. 3. Follow up with ABG, urine culture and chest x-ray. 4. Continue GI and DVT prophylaxis. 5. Further recommendations pending hospital course. Thank you for the courtesy of this consult. Dictated by OSBALDO Mary for Juan Jose Uribe MD cc: OSBALDO Mary MD [facility]
[2019-04-25] MEDS: PROTONIX IV SCH (16:24)
[2019-04-25] MEDS: RISPERDAL PO SCH (20:13)
[2019-04-25] MEDS: LAMICTAL PO SCH (20:13)
[2019-04-25] MEDS: ZONEGRAN PO SCH (20:14)
[2019-04-26] MEDS: NS 1,000 ML IV SCH ×2 (02:38→13:31)
[2019-04-26] MEDS: DIPRIVAN 1% 1,000 MG/100 ML BOTTLE IV SCH ×2 (02:41→06:03)
[2019-04-26] MEDS: ZOSYN 3.375 GM in NS 50 ML IV SCH ×4 (02:41→20:21)
[2019-04-26 04:29] LABS: ALLEN TEST YES; BE 0.3 mmoll (-3.0-3.0); BLOOD TYPE ARTERIAL; HCO3-(ACT) 25.1 mmoll (20.0-26.0); METHB 0.6 % (0.0-1.5); O2(CT) 15.9 mL/dL (15.0-23.0); O2HB 96.1 % (95.0-99.0); PCO2(98.6) 42 mmHg (35-45); PO2(98.6) 207 mmHg (60-100); SAMPLE BLOOD; SAO2 96.8 % (95.0-100.0); SRATE 12 BPM; THB 11.4 g/dL (11.5-17.4); TVOL 450 mL; pH(98.6) 7.39 (7.35-7.45)
[2019-04-26 04:30] LABS: MODALITY VENTILATOR
[2019-04-26 06:20] LABS: HEMOGLOBIN 11.1 g/dL (12.0-16.0); MCH 29.4 PG (27-31); MCHC 32.6 g/dL (33-37); MCV 89.9 FL (81-99); MPV 11.3 FL (7.4-10.4); RBC 3.78 XMIL (4.2-5.4); RDW 13.6 % (11.5-14.5); WBC 6.02 X1000 (4.8-10.8)
[2019-04-26 07:02] LABS: AGAP 7; ALB/GLOB RATIO 1.1; ALBUMIN 2.9 g/dL (3.5-5.0); ALKALINE PHOSPHATASE 79 U/L (32-104); BUN 5 mg/dL (8-22); CALCIUM 7.9 mg/dL (8.8-10.2); CHLORIDE 111 mmol/L (98-107); COSMO 280; CREATININE 0.6 mg/dL (0.5-0.9); ESTIMATED GFR > 60; GLUCOSE 95 mg/dL (70-104); GOT 10 U/L (10-30); GPT < 5 U/L (10-36); POTASSIUM 3.3 mmol/L (3.5-5.1); SODIUM 142 mmol/L (136-145); TCO2 24 mmol/L (25-35); TOTAL BILIRUBIN 0.27 mg/dL (0.20-1.00); TOTAL PROTEIN 5.5 g/dL (6.3-8.3)
--- NOTE | 2019-04-26 07:19 | Diag Imaging Result Doc PS360 ---
CHEST-PORTABLE - 04/26/2019 INDICATION: dyspnea COMPARISON: 04/25/2019 FINDINGS: Stable endotracheal tube and nasogastric tube in good position. The lungs are clear and the heart size is normal. IMPRESSION: Endotracheal tube is now in good position. No acute disease. Electronically signed by Jaiden Armendariz 04/26/2019 7:17 AM
[2019-04-26] MEDS: DUONEB (A & A) INH PRN ×2 (08:06→19:34)
[2019-04-26] MEDS: LAMICTAL PO SCH ×2 (08:27→20:17)
[2019-04-26] MEDS: ZONEGRAN PO SCH ×2 (08:27→20:12)
[2019-04-26 10:46] LABS: ALLEN TEST YES; BE 0.9 mmoll (-3.0-3.0); BLOOD TYPE ARTERIAL; HCO3-(ACT) 25.6 mmoll (20.0-26.0); METHB 0.4 % (0.0-1.5); O2(CT) 15.6 mL/dL (15.0-23.0); O2HB 95.8 % (95.0-99.0); PCO2(98.6) 46 mmHg (35-45); PO2(98.6) 144 mmHg (60-100); SAMPLE BLOOD; SAO2 96.2 % (95.0-100.0); THB 11.4 g/dL (11.5-17.4); pH(98.6) 7.37 (7.35-7.45)
[2019-04-26 10:47] LABS: MODALITY VENTILATOR
[2019-04-26] MEDS: ATIVAN IV PRN (12:10)
[2019-04-26] MEDS ORDERED: ATIVAN IV PRN (12:23)
[2019-04-26] MEDS: HALDOL IV PRN ×2 (12:39→20:28)
--- NOTE | 2019-04-26 15:41 | PROGRESS NOTE ---
DATE: 04/26/2019 SUBJECTIVE: Patient has no major complaints. OBJECTIVE: Blood pressure 117/71, heart rate of 108, respiratory rate of 18, temperature was afebrile. Cardiovascular: Regular rate and rhythm. Pulmonary: Bilateral breath sounds clear to auscultation. GI: Soft, nontender, nondistended. Bowel sounds were positive. Laboratory Data: White count 6, hemoglobin and hematocrit 11 and 34, platelets 183,000. PH 7.37, pCO2 of 46, PaO2 of 144. She was extubated. Potassium is 3.3. PROBLEM LIST: 1. Drug overdose with oversedation. Unclear if this was intentional. I get a sense it was unintentional, not related to active depression. She has severe memory impairment from a history of encephalitis that she overtakes her medications. By report, they have family is working on getting a lock box for her medications. She still seems very altered. I do not know if this is far from baseline or from overdose on her medications, or not getting some of her medications. 2. Bipolar schizophrenia. When she is stabilized, we will get [facility] to evaluate her. 3. Seizure disorder. We will continue her regular medicines. 4. Gram-negative urinary tract infection. Microbiology grew out Klebsiella which is resistant to ampicillin alone. She is currently on Rocephin and that should be sufficient. DISPOSITION: Pending her clinical status. We will continue to follow closely. cc: Reji Ocampo MD
[2019-04-26] MEDS: KLONOPIN PO SCH (17:22)
[2019-04-26] MEDS: PROTONIX IV SCH (17:22)
[2019-04-26] MEDS: ADVAIR 250/50 DISKUS INH SCH ×2 (17:22→18:17)
[2019-04-26] MEDS: RISPERDAL PO SCH (20:12)
[2019-04-27] MEDS: NS 1,000 ML IV SCH ×2 (01:38→03:57)
[2019-04-27] MEDS: ZOSYN 3.375 GM in NS 50 ML IV SCH ×3 (02:00→09:35)
[2019-04-27] MEDS: SYNTHROID PO SCH (06:06)
[2019-04-27 06:31] LABS: HEMATOCRIT 34.4 % (37.0-47.0); MCH 29.9 PG (27-31); MCV 93.5 FL (81-99); MPV 11.3 FL (7.4-10.4); RBC 3.68 XMIL (4.2-5.4); RDW 14.1 % (11.5-14.5); WBC 7.22 X1000 (4.8-10.8)
[2019-04-27 07:00] LABS: AGAP 15; ALB/GLOB RATIO 1.2; ALKALINE PHOSPHATASE 89 U/L (32-104); BUN 5 mg/dL (8-22); CALCIUM 8.5 mg/dL (8.8-10.2); CHLORIDE 114 mmol/L (98-107); COSMO 284; CREATININE 0.5 mg/dL (0.5-0.9); ESTIMATED GFR > 60; GLUCOSE 68 mg/dL (70-104); GOT 25 U/L (10-30); GPT 6 U/L (10-36); POTASSIUM 3.5 mmol/L (3.5-5.1); SODIUM 145 mmol/L (136-145); TCO2 16 mmol/L (25-35); TOTAL BILIRUBIN 0.38 mg/dL (0.20-1.00); TOTAL PROTEIN 5.6 g/dL (6.3-8.3)
[2019-04-27] MEDS: ZONEGRAN PO SCH ×2 (08:06→19:59)
[2019-04-27] MEDS: LAMICTAL PO SCH ×2 (08:07→19:59)
[2019-04-27] MEDS: FOLIC ACID PO SCH (08:07)
[2019-04-27] MEDS: KLONOPIN PO SCH ×3 (08:07→18:00)
[2019-04-27] MEDS: SINGULAIR PO SCH (08:07)
[2019-04-27] MEDS: ADVAIR 250/50 DISKUS INH SCH (10:03)
[2019-04-27 11:52] LABS: ALLEN TEST YES; BE -12.2 mmoll (-3.0-3.0); BLOOD TYPE ARTERIAL; HCO3-(ACT) 15.4 mmoll (20.0-26.0); METHB 0.4 % (0.0-1.5); MODALITY ROOM AIR; O2(CT) 15.7 mL/dL (15.0-23.0); O2HB 94.9 % (95.0-99.0); PCO2(98.6) 28 mmHg (35-45); PO2(98.6) 88 mmHg (60-100); SAMPLE BLOOD; SAO2 95.3 % (95.0-100.0); THB 11.7 g/dL (11.5-17.4); pH(98.6) 7.28 (7.35-7.45)
--- NOTE | 2019-04-27 12:15 | PROGRESS NOTE ---
DATE: 04/27/2019 SUBJECTIVE: Patient has no major complaints. OBJECTIVE: She is more awake, alert, still somewhat sedated but her speech is more clear. Blood pressure is 120/79, heart rate of 107, respiratory rate of 18, temperature - she is afebrile. Cardiovascular: Regular rate and rhythm. Pulmonary: Bilateral breath sounds clear to auscultation. GI: Soft, nontender, nondistended. Bowel sounds were positive. Laboratory Data: White count 7, hemoglobin and hematocrit 11 and 34, platelets 177,000. Everything looked okay except bicarb was 16, sugar 68. PROBLEM LIST: 1. Drug overdose, unintentional. It may be related to memory impairment but she does have a significant psychiatric disorder, most likely schizoaffective, bipolar with some psychotic features, and I do not think this has been completely controlled. She has been recently placed on Risperdal but she had not even started the medication. She previously had been on Haldol but she reports that for the last several days, she has had persistent hallucinations. 2. Schizoaffective. I think [facility] needs to evaluate her. I think she most likely will need inpatient care. 3. Seizure disorder. She is on her regular medications. That has been stable. 4. Klebsiella urinary tract infection. She is on Keflex. DISPOSITION: She is medically stable for transfer to a psychiatric facility when a bed is available. We will continue to follow. cc: Reji Ocampo MD
[2019-04-27] MEDS: KEFLEX PO SCH (19:59)
[2019-04-27] MEDS: RISPERDAL PO SCH (19:59)
[2019-04-27] MEDS: HALDOL IM PRN (21:18)
[2019-04-28] MEDS: HALDOL IM PRN (01:10)
[2019-04-28] MEDS: SYNTHROID PO SCH (06:07)
[2019-04-28 06:10] VITALS: BP 123/85
[2019-04-28 06:17] LABS: HEMATOCRIT 35.4 % (37.0-47.0); HEMOGLOBIN 11.7 g/dL (12.0-16.0); MCH 30.1 PG (27-31); MCHC 33.1 g/dL (33-37); RBC 3.89 XMIL (4.2-5.4); WBC 6.17 X1000 (4.8-10.8)
[2019-04-28 06:18] LABS: MPV 10.5 FL (7.4-10.4)
[2019-04-28 06:28] LABS: AGAP 9; ALB/GLOB RATIO 1.1; ALBUMIN 2.9 g/dL (3.5-5.0); ALKALINE PHOSPHATASE 84 U/L (32-104); BUN 6 mg/dL (8-22); CALCIUM 8.5 mg/dL (8.8-10.2); CHLORIDE 113 mmol/L (98-107); COSMO 282; CREATININE 0.5 mg/dL (0.5-0.9); ESTIMATED GFR > 60; GLUCOSE 89 mg/dL (70-104); GOT 23 U/L (10-30); GPT 5 U/L (10-36); POTASSIUM 3.4 mmol/L (3.5-5.1); SODIUM 143 mmol/L (136-145); TCO2 21 mmol/L (25-35); TOTAL BILIRUBIN 0.29 mg/dL (0.20-1.00); TOTAL PROTEIN 5.5 g/dL (6.3-8.3)
[2019-04-28] MEDS: ZONEGRAN PO SCH (08:07)
[2019-04-28] MEDS: LAMICTAL PO SCH (08:07)
[2019-04-28] MEDS: KEFLEX PO SCH (08:07)
[2019-04-28] MEDS: KLONOPIN PO SCH (08:07)
[2019-04-28] MEDS: FOLIC ACID PO SCH (08:07)
[2019-04-28] MEDS: SINGULAIR PO SCH (08:07)
[2019-04-28] MEDS ORDERED: KLOR-CON PO ONE (09:08)
--- NOTE | 2019-04-28 10:38 | DISCHARGE SUMMARY ---
ADMISSION DATE: 04/24/2019 DISCHARGE DATE: 04/28/2019 DISCHARGE DIAGNOSES: 1. Drug overdose, intentional. 2. Schizoaffective disorder. 3. Seizure disorder. 4. Klebsiella pneumoniae urinary tract infection. PROCEDURES: Endotracheal intubation. She was actually intubated 3 times. HISTORY AND HOSPITAL COURSE: This is a 43-year-old female who has schizoaffective disorder and encephalitis and came in with GCS of 8. She was intubated and then I am not sure if she extubated herself or she was extubated but post extubation, she was still fairly drowsy. Narcan did help a bit. When I saw her, her pH had dropped into a more acidotic range. Initially, she had a close to normal pH at 3.3 and then it went to 7.35, then down to 7.25 and then it went down further to 7.24. She was re-intubated because of airway protection. There was some questionable pulmonary edema. We attempted to wean her and then she self-extubated requiring re-intubation on the . On the , I think she was extubated without difficulty. She does have memory impairment and sometimes it is unclear if she takes her medications appropriately or knowingly takes more than she should and unfortunately, she is on a lot of medications that are not very compatible. She was just started on Risperdal, which we have continued here so. She was evaluated by [facility] on the . They did not feel she met inpatient criteria and this could be managed as an outpatient. A no-harm contract was signed. The problem is she has not been able to get into any psychiatrist because of insurance issues and then also I think because she is concurrently on some pain medication, but I would recommend she really cut down on everything she can because she seems too sedated at this point. She was evaluated and outpatient plan was put in place but she was not admitted and again, she denied any suicidality, she was not having any hallucinations, although prior to coming to the hospital, she was having hallucinations on a daily basis reportedly. She has a pleasant affect, all things of that nature. DISCHARGE MEDS: Risperdal 2 at bedtime, Advair daily. She is on 30 b.i.d. of Adderall, 1 capsule of fish oil daily, fluticasone, folic acid 1 daily, [place] 10 t.i.d. p.r.n. pain, Lamictal 100 b.i.d., omeprazole 20 daily, Singulair 10 daily, Synthroid 137 mcg daily, zonisamide 100 daily but she takes 100 in the morning and 200 at night. Keflex is new, 500 q.12. I would like to put her on some Risperdal during the day but I am worried about her being oversedated. Encouraged her that she needs to stop her pain pills or only take them intermittently. Encouraged her to follow up with Psychiatry as soon as possible. We may be able to go up a little bit on her Risperdal but I think this is a pretty good dose and she seems to be handling it well. DISCHARGE CONDITION: Stable. FOLLOWUP: Told to follow up with her PCP, who is Dr. Lowery now, and follow [facility] with [facility], closest psychiatrist as soon as possible. TIME SPENT: 32 minute discharge. cc: MD Venkatesh Verdugo MD
== END 2019-04-28 11:31 | disposition home health service (06) | DRG 917 ==
LOC: ED 10:35 → ICU 14:43
PROVIDERS: ATTEND Internal Medicine